=== PATIENT | male | born 1990 | race Caucasian/White ===

== ENCOUNTER 2020-04-06 15:02 | Emergency (ER) | payer OTHER ==
[~2020-04-06] VITALS: Ht 185.4 cm; Wt 80.0 kg
--- NOTE | 2020-04-06 15:10 | NUR ---
BIB BY GERTRUDE. PT ON LEGAL HOLD FROM [facility]. WAS UNABLE TO CARE FORSELF, BANGING HEAD ON DOOR, HOSTILE, SMEARING FECEES AND URINE PER [facility]ANCSCH STAFF AT FACILITY. PT HOSTILE AND VERBALLY AGRESSIVE Estevan LOREDO, PLACED IN RESTRAINTS BY SECURITY. PA AT BEDSIDE. PT IN GOWN.
[2020-04-06 15:41] VITALS: BP 116/72
[2020-04-06 15:45] LABS: BASOPHILS # (AUTO) 0.03 x10^3/uL (0-0.1); BASOPHILS % (AUTO) 1 % (0-1); EOSINOPHILS # (AUTO) 0.03 x10^3/uL (0-0.4); EOSINOPHILS % (AUTO) 1 % (1-7); LYMPHOCYTES # (AUTO) 1.47 x10^3/uL (1-3.4); LYMPHOCYTES % (AUTO) 24 % (22-44); MD NO; MEAN CORPUSCULAR HEMOGLOBIN 31.3 pg (27.5-34.5); MEAN CORPUSCULAR HGB CONC 34.1 g/dL (33.2-36.2); MEAN CORPUSCULAR VOLUME 91.7 fL (81-97); MEAN PLATELET VOLUME 9.1 fL (7.4-10.4); MONOCYTES # (AUTO) 0.64 x10^3/uL (0.2-0.8); MONOCYTES % (AUTO) 11 % (2-9); NEUTROPHILS # (AUTO) 3.92 x10^3/uL (1.8-6.8); NEUTROPHILS % (AUTO) 64 % (42-75); PLATELET COUNT 168 x10^3/uL (130-400); RED BLOOD COUNT 5.01 x10^6/uL (4.38-5.82); RED CELL DISTRIBUTION WIDTH 12.9 % (9.4-14.8)
[2020-04-06 15:54] LABS: ALBUMIN 3.9 g/dL (3.4-5.0); ANION GAP 8 mmol/L (5-15); CALCIUM 8.6 mg/dL (8.5-10.1); CHLORIDE 112 mmol/L (98-107); CREATININE 1.29 mg/dL (0.7-1.3); SALICYLATE LEVEL 2.5 mg/dL (2.8-20.0)
--- NOTE | 2020-04-06 16:08 | NUR ---
PT AGREEABLE TO BE COOPERATIVE AND TO HAVE APPROPIATE BEHAVIOR WITH STAFF. ALL 4 RESTRAINTS RELEASED.
--- NOTE | 2020-04-06 16:35 | NUR ---
PIPE ORGAN MECHANIC APPRENTICE AT BEDSIDE
--- NOTE | 2020-04-06 17:03 | NUR ---
BELONGINGS TO PATIENT. PLAN TO DC SOON
--- NOTE | 2020-04-06 17:12 | NUR ---
Patient/Caregiver given discharge instructions and they have confirmed that they understand the instructions. Patient ambulatory with steady gait.
== END 2020-04-06 17:16 | disposition home or self-care (01) ==
LOC: ED 17:00
DX: F20.0 Paranoid schizophrenia (principal)
CPT/HCPCS: 36415; 80048; 80307; 82040; 84443; 85025; 99283

== ENCOUNTER 2021-07-08 05:41 | Emergency (ER) | payer OTHER ==
[~2021-07-08] VITALS: Ht 177.8 cm; Wt 95.5 kg
--- NOTE | 2021-07-08 06:01 | NUR ---
PT BROUGHT IN BY LAW ENFORCEMENT ON A LEGAL HOLD, PT NOT IN CUSTODY AND WAS BEING RELEASED FROM LONG TERM AND FOR A VERY UNCLEAR REASON THE DOCTOR AT THE LONG TERM BUT PT ON A LEGAL HOLD, PT NOT ENDORSING SI/SH, PT COOPERATIVE, PT NOT VIOLENT, PT AGREEING TO EVERY REQUEST MADE BY [facility] STAFF, PT APPEARS TO BE ABLE TO CARE FOR HIMSELF, PT WELL KEPT AND NOT MALNOURISHED LOOKING, A/OX4, ALL NEEDS IN REACH, PTS BELONGINGS LOCKED IN LOCKER, GARAGE DOORS DOWN FOR PT SAFETY, PT IN A HOSPITAL GOWN, NAD AT THIS TIME
--- NOTE | 2021-07-08 06:49 | NUR ---
REPORT FROM BIGG ARROYO. PATIENT IN ROOM, GOWNED, ITEMS OF HARM ALL REMOVED. AWAITING TELEPSYCH.
--- NOTE | 2021-07-08 06:55 | NUR ---
PATIENT CALM, COOPERATIVE, DENIES SUICIDE IDEATION. ORDERED BREAKFAST. VSS.
--- NOTE | 2021-07-08 08:09 | NUR ---
got patient breakfast. ate all. calm/cooperative
--- NOTE | 2021-07-08 09:00 | NUR ---
Report received from Olman RN and care assumed. Pt awaiting psychiatric eval.
--- NOTE | 2021-07-08 09:30 | NUR ---
Psych [employer] SUPERVISOR states pt is cleared from legal hold and is working on D/C to home. Pt's girlfried is being called now to come pick him up.
[2021-07-08 09:37] VITALS: BP 122/64
--- NOTE | 2021-07-08 09:39 | NUR ---
Pt dressed, all belongings returned from locker and confirmed with pt as present in his possesion. Pt ambulatory to d/c desk after instructions provided with stated understanding of these.
== END 2021-07-08 09:39 | disposition home or self-care (01) ==
LOC: ED 08:44
DX: F31.70 Bipolar disorder, currently in remission, most recent episode unspecified (principal); F20.0 Paranoid schizophrenia
CPT/HCPCS: 99283